=== PATIENT | female | born 1995 | race American Indian/Alaskan Native ===

== ENCOUNTER 2018-05-03 10:54 | Inpatient (IN) | payer OTHER ==
[~2018-05-03] VITALS: Ht 157.5 cm; Wt 77.1 kg
[~2018-05-03 10:54] MED LIST: COLACE100 MG PO; FERRO-PLEX PO; IRON1 TAB PO; MOTRIN IB200 MG PO; Mylicon 125MG PO; OXYC1TAB9 PO; PRENATAL TABLE1 EAC1 PO; PRENATE ADVANCE PO
[2018-05-03] MEDS ORDERED: PRENATAL 19 TA1 EAC1 PO (11:31)
== END 2018-05-10 13:23 | DRG 766 ==
LOC: O/R 05-07 07:01 → OB/GYN 05-07 07:01
PROVIDERS: Obstetrics & Gynecology
PROC: 0UB70ZZ Excision of Bilateral Fallopian Tubes, Open Approach (ICD-10-PCS; 2018-05-07)
PROC: 4A1HXCZ Monitoring of Products of Conception, Cardiac Rate, External Approach (ICD-10-PCS; 2018-05-07)
PROC: 4A033R1 Measurement of Arterial Saturation, Peripheral, Percutaneous Approach (ICD-10-PCS; 2018-05-07)
PROC: 10D00Z1 Extraction of Products of Conception, Low, Open Approach (ICD-10-PCS; principal; 2018-05-07 09:15)
DX: O34.211 Maternal care for low transverse scar from previous cesarean delivery (principal); O75.82 Onset (spontaneous) of labor after 37 completed weeks of gestation but before 39 completed weeks gestation, with delivery by (planned) cesarean section; Z3A.39 39 weeks gestation of pregnancy; Z37.0 Single live birth; Z30.2 Encounter for sterilization